=== PATIENT | male | born 1990 | race Hispanic/Latino ===

== ENCOUNTER 2023-11-10 20:57 | Emergency (ER) | payer OTHER | END 2023-11-10 21:37 | disposition home or self-care (01) | LOC: ERS 20:57 | DX: T20.16XA Burn of first degree of forehead and cheek, initial encounter (principal); T22.112A Burn of first degree of left forearm, initial encounter; T31.0 Burns involving less than 10% of body surface; X12.XXXA Contact with other hot fluids, initial encounter | CPT/HCPCS: 99283 ==

== ENCOUNTER 2025-01-11 21:05 | Emergency (ER) | payer SELFPAY ==
[2025-01-11] MEDS ORDERED: Lidocaine 1% PF 5 ML VIAL ONE (21:44)
[2025-01-11] MEDS ORDERED: Ketorolac Tromethamine 30 MG (1 mL) VIAL ONE (22:19)
[2025-01-11] MEDS ORDERED: CEFAZOLIN 2 GM VIAL ONE (22:19)
== END 2025-01-11 23:00 | disposition home or self-care (01) ==
LOC: ERS 21:05
DX: S41.142A Puncture wound with foreign body of left upper arm, initial encounter (principal); W45.8XXA Other foreign body or object entering through skin, initial encounter; Y93.89 Activity, other specified
CPT/HCPCS: 96372; 99283; J1885